=== PATIENT | female | born 1990 | race Caucasian/White ===

== ENCOUNTER → 2018-02-03 12:11 | Outpatient (CLI) | payer MEDICAID, SELFPAY ==
--- NOTE | 2018-02-03 12:17 | US_ITS ---
STUDY: THYROID ULTRASOUND REASON FOR EXAM: Female, 27 years old. Hypothyroidism TECHNIQUE: Ultrasound evaluation of the thyroid was performed with real-time and static hartmann-scale imaging. COMPARISON: None. FINDINGS: RIGHT LOBE: The right lobe of the thyroid gland measures 4.6 x 1.4 x 1.3 cm. There is a heterogeneous echotexture. There are no demonstrated solid, cystic or complex lesions. LEFT LOBE: The left lobe of the thyroid gland measures 4.1 x 1.2 x 1.3 cm. There is a heterogeneous echotexture. There are no demonstrated solid, cystic or complex lesions. ISTHMUS: The isthmus measures 3 mm. The regional lymph nodes are normal. US/Thyroid IMPRESSION: Heterogeneous thyroid without nodules Electronically Signed: Jose Bedoya DO at 14:04 EDT Tel , Service support ,
== END ==
DX: E03.9 Hypothyroidism, unspecified (principal)
CPT/HCPCS: 76536

== ENCOUNTER → 2018-06-24 09:12 | Outpatient (CLI) | payer MEDICAID, SELFPAY ==
--- NOTE | 2018-06-24 09:15 | RAD_ITS ---
STUDY: SWALLOWING STUDY REASON FOR EXAM: Female, 27 years old. Dysphagia TECHNIQUE: The examination was performed with Speech Pathology in attendance. Under fluoroscopic observation, the patient ingested thin barium, thick barium, barium pudding, and barium coated cracker. FLUOROSCOPY TIME: 1:06 minutes/seconds RADIOLOGIST INVOLVEMENT: Radiologist was present and providing direct supervision. COMPARISON: None. FINDINGS: The following was observed during swallowing of the various mixtures of barium: Thin Barium: There was no evidence of aspiration or laryngeal penetration. Thick Barium: There was no evidence of aspiration or laryngeal penetration. Barium Pudding: There was no evidence of aspiration or laryngeal penetration. Barium Coated Cracker: There was no evidence of aspiration or laryngeal penetration. RAD/Swallowing Function w/Video IMPRESSION: Normal tailored barium swallow study. No evidence of increased risk for aspiration. The swallow study findings were discussed with the patient by the speech pathologist at the conclusion of the examination. Please see speech pathology report for more information and recommendations. The procedure was performed by speech therapist under the direct supervision of myself Electronically Signed: Michelle King, at 12:34 EDT Tel , Service support ,
--- NOTE | 2018-06-24 10:07 | SP.MBSS_ITS ---
PRIMARY / SECONDARY DIAGNOSIS: dysphagia, unspecified (R13.10) REFERRING PHYSICIAN: Cinthya Cedeno/Batsheva Watson CURRENT DIET: Regular textures/thin liquids DENTITION: Natural Teeth MENTAL STATUS: WFL RESPIRATORY STATUS: O2 via room air PREVIOUS MODIFIED BARIUM SWALLOW STUDY: N/A REASON FOR REFERRAL: throat clearing/coughing when swallowing MEDICAL HISTORY: Graves/ Disease, hypothyroidism STUDY FINDINGS: Patient participated in a Modified Barium Swallow (MBS) study on 06/24/2016. Dr. King was the radiologist present for this evaluation. This study was recorded in the lateral view and images were sent to PACs for storage. The following consistencies were presented to this patient for analysis of oropharyngeal swallow function: thin liquid, pudding, and a regular textured, Mami Doone cookie. Results of the MBS are as follows: PENETRATION / ASPIRATION SCALE (HAY): 1 = does not enter airway 2 = enters airway/above vocal folds/ejected 3 = enters airway/above vocal folds/not ejected 4 = enters airway/contacts vocal folds/ejected 5 = enters airway/contacts vocal folds/not ejected 6 = enters airway/below vocal folds/ejected 7 = enters airway/below vocal folds/not ejected despite effort 8 = enters airway/below vocal folds/no effort PENETRATION / ASPIRATION SCALE (SCORE): 1) thin liquid via teaspoon = 1 2) thin liquid via teaspoon = 1 3) thin liquid via single small sip from cup= 1 4) thin liquid via single large sip from cup= 1 5) thin liquid via sequential sips from cup = 1 6) thin liquid via sequential sips via straw = 1 7) pudding = 1 8) cookie = 1 9) cookie = 1 IMPRESSION: Swallow function within normal limits. ORAL PHASE CHARACTERIZED BY: LABIAL SEAL: no labial escape TONGUE CONTROL DURING BOLUS MANIPULATION: cohesive bolus between tongue to palatal seal BOLUS PREPARATION / MASTICATION: timely and efficient chewing and mashing BOLUS TRANSPORT / LINGUAL MOTION: brisk tongue motion ORAL RESIDUE: trace residue lining oral structures PHARYNGEAL PHASE CHARACTERIZED BY: INITIATION OF PHARYNGEAL SWALLOW: bolus head at posterior angle of ramus at first hyoid excursion SOFT PALATE ELEVATION: no bolus between soft palate and pharyngeal wall LARYNGEAL ELEVATION: complete superior movement of thyroid cartilage with complete approximation of arytenoids cartilage to epiglottic petiole ANTERIOR HYOID EXCURSION: complete anterior movement EPIGLOTTIC MOVEMENT: complete epiglottic inversion LARYNGEAL VESTIBULE CLOSURE AT HEIGHT OF SWALLOW: complete laryngeal vestibule closure with no air/contrast in laryngeal vestibule PHARYNGEAL STRIPPING WAVE: pharyngeal stripping wave present / complete PHARYNGOESOPHAGEAL SEGMENT OPENING: complete distension and complete duration with no obstruction of flow TONGUE BASE RETRACTION: trace column of contrast between tongue base and posterior pharyngeal wall PHARYNGEAL RESIDUE: complete pharyngeal clearance ESOPHAGEAL PHASE CHARACTERIZED BY: ESOPHAGEAL BOLUS CLEARANCE IN THE UPRIGHT POSITION: complete clearance from portion that could be visualized. DIET TEXTURE RECOMMENDATIONS: Will recommend a regular textured, thin liquid diet. COMPENSATORY STRATEGIES RECOMMENDED: Will recommend reduced bolus volume, alternate bites/sips, sit upright 90 degrees during PO intake. INTERPRETATION OF RESULTS: Patient presents with swallow function that is within normal limits at this time. Symptoms patient is describing (throat clearing) may be likely due to post nasal drip and/or acid reflux causing sensation requiring throat clear/cough. Oral phase of the patients swallow primarily marked by brisk lingual motion and adequate mastication with regular textures. Timely swallow appreciated. Pharyngeal phase primarily marked by adequate laryngeal elevation and hyoid excursion with effective epiglottic closure. No aspiration noted this date with thin liquids, pudding, or cookie/regular textures. RECOMMENDATIONS: The patient and family verbalize understanding and agreement with results and were provided a brief overview of signs and symptoms of aspiration, with recommendations for the patient to further discuss symptoms with PCP. No further skilled speech-language services warranted at this time targeting dysphagia. IMAGE COUNT: [id number] Soledad Rivas M.A., [facility] Speech Language Pathologist [address] [address] [phone]
== END ==
PROVIDERS: Referring Provider Nurse Practitioner Family
DX: R13.10 Dysphagia, unspecified (principal)
CPT/HCPCS: 74230; 92611

== ENCOUNTER → 2020-06-02 09:20 | Outpatient (CLI) | payer MEDICAID, SELFPAY ==
[2020-06-02 10:23] LABS: T4 Free Direct 1.27 ng/dL (0.76-1.46); Thyroid Stim Hormone (TSH) 0.35 uIU/mL (0.358-3.74)
== END ==
DX: Z79.899 Other long term (current) drug therapy (principal)
CPT/HCPCS: 36415; 84439; 84443

== ENCOUNTER → 2020-07-16 09:28 | Outpatient (CLI) | payer MEDICAID, SELFPAY ==
[2020-07-16 11:19] LABS: Thyroid Stim Hormone (TSH) 2.11 uIU/mL (0.358-3.74)
== END ==
PROVIDERS: Visit Provider Nurse Practitioner Adult Health
DX: E03.9 Hypothyroidism, unspecified (principal)
CPT/HCPCS: 36415; 84443

== ENCOUNTER → 2020-10-29 08:48 | Outpatient (CLI) | payer OTHER, MEDICAID, SELFPAY ==
[2020-10-29 09:14] LABS: Absolute Lymphocyte Count 3.84 X10^3/uL (0.83-4.51); Absolute Neutrophil Count 7.2 X10^3/uL (2.0-7.7); Basophil% 0.8 % (0-1); Eosinophil# 0.57 X10^3/uL; Eosinophils% 4.4 % (0-5); Hematocrit 42.2 % (37-47); Lymphocyte # 3.84 X10^3/ul (0.83-4.51); Lymphocyte % 29.9 % (19-41); Mean Corp Hgb Conc 33.2 g/dL (32-36); Mean Corpuscular Hgb 31.1 pg (27.0-32.0); Mean Corpuscular Volume 93.8 fL (81-99); Mean Platelet Vol. 10.5 fl (6.2-12.0); Monocyte# 1.09 X10^3/uL; Monocyte% 8.5 % (0-10); NRBC Flagged by Analyzer 0 % (0-5); Neutrophil # 7.21 X10^3/uL (2.7-7.7); Platelet Count 232 K/mm3 (150-450); RBC Distribution Width CV 12.8 % (11.6-14.6); White Blood Count 12.9 K/mm3 (4.4-11.0)
[2020-10-29 09:40] LABS: AST(SGOT) 22 U/L (15-37); Alanine Aminotransfer ALT/SGPT 25 U/L (13-56); Albumin, Serum 3.8 g/dL (3.2-5.0); Alkaline Phosphatase 61 U/L (45-117); Anion Gap 6 (5-15); BUN 12 mg/dL (7-18); BUN/Creat Ratio 17.4 RATIO (10-20); Calcium,Total 8.9 mg/dL (8.5-10.1); Chloride 105 mmol/L (98-107); Cholesterol 180 mg/dL (200); Creatinine, Serum 0.69 mg/dL (0.55-1.02); EST Glomerular Filtration Rate 108 mL/min (>60); Est Glom Filt Rate - Afr Amer 131 mL/min (>60); Globulin 3.7 g/dL (2.2-4.2); Glucose 80 mg/dL (74-106); High Density Lipoprotein 50 mg/dL; Potassium 3.7 mmol/L (3.5-5.1); Protein, Total 7.5 g/dL (6.4-8.2); Sodium Level 139 mmol/L (136-145); Triglycerides 119 mg/dL; Very Low Density Lipoprotein 24 mg/dL (5-40)
[2020-10-31 14:41] LABS: Vitamin D 1,25-Dihydroxy 58.2 pg/mL (19.9-79.3)
== END ==
PROVIDERS: PCP Nurse Practitioner Adult Health; Referring Provider Nurse Practitioner Adult Health; Visit Provider Nurse Practitioner Adult Health
DX: E03.9 Hypothyroidism, unspecified (principal); E55.9 Vitamin D deficiency, unspecified
CPT/HCPCS: 36415; 80053; 80061; 82652; 85025

== ENCOUNTER 2021-01-22 08:41 | Emergency (ER) | payer OTHER, MEDICAID, SELFPAY ==
[2021-01-22 08:42] VITALS: BP 145/96; PULSE 94; RESP 18; TEMP 35.5; O2SAT 97; BMI 41.3
--- NOTE | 2021-01-22 08:47 | NURSING ---
NO OLD EKGS
--- NOTE | 2021-01-22 09:03 | RAD_ITS ---
EXAM: XR CHEST, 1 VIEW : 1990 CLINICAL INDICATION: chest pain TECHNIQUE: Frontal view of the chest. This report was created using [employer] report generation technology. COMPARISON: None. FINDINGS: LUNGS AND PLEURAL SPACES: Unremarkable. No consolidation or edema. No pneumothorax. No effusion. HEART: Unremarkable. Cardiac silhouette not enlarged. MEDIASTINUM: Central airways and mediastinal contour are unremarkable. BONES/JOINTS: Unremarkable. SOFT TISSUES: Unremarkable. RAD/Chest 1 View (Portable) IMPRESSION: No radiographic evidence of acute cardiopulmonary disease. at 1821 Reported and signed by: Clarence Cobos MD Electronically Signed: Clarence Cobos MD at 18:20 EDT Tel , Service support ,
--- NOTE | 2021-01-22 09:03 | EKG12_ITS ---
Test Reason : Blood Pressure : / mmHG Vent. Rate : 096 BPM Atrial Rate : 096 BPM P-R Int : 182 ms QRS Dur : 086 ms QT Int : 380 ms P-R-T Axes : 054 071 036 degrees QTc Int : 480 ms Normal sinus rhythm Normal ECG Confirmed by LEO BRYAN MD ([id number]), editor newspaper MAX SAMS ([id number]) on 01/23/2021 9:24:44 AM Referred By: EDITH Confirmed By:LEO BRYAN MD
[2021-01-22] MEDS: Aspirin 81 MG TAB.CHEW 324 MG PO (09:28)
[2021-01-22 09:37] LABS: Absolute Lymphocyte Count 3.26 X10^3/uL (0.83-4.51); Absolute Neutrophil Count 5.4 X10^3/uL (2.0-7.7); Basophil# 0.13 X10^3/uL; Basophil% 1.3 % (0-1); Eosinophil# 0.41 X10^3/uL; Hematocrit 42.4 % (37-47); Hemoglobin 14.5 g/dL (12.0-15.0); Lymphocyte # 3.26 X10^3/ul (0.83-4.51); Lymphocyte % 32.1 % (19-41); Mean Corp Hgb Conc 34.2 g/dL (32-36); Mean Corpuscular Hgb 32.4 pg (27.0-32.0); Mean Corpuscular Volume 94.6 fL (81-99); Mean Platelet Vol. 10.4 fl (6.2-12.0); Monocyte# 0.96 X10^3/uL; Monocyte% 9.4 % (0-10); NRBC Flagged by Analyzer 0 % (0-5); Neutrophil # 5.38 X10^3/uL (2.7-7.7); Neutrophil % 52.9 % (47-70); Platelet Count 253 K/mm3 (150-450); RBC Distribution Width CV 12.7 % (11.6-14.6); RBC Distribution Width SD 43.8 fl (35.1-43.9); Red Blood Count 4.48 M/mm3 (4.2-5.4); White Blood Count 10.2 K/mm3 (4.4-11.0)
[2021-01-22 09:49] LABS: D-Dimer Quantitative (DVT/PE) 0.59 FEU/ug/m (0.27-0.49)
[2021-01-22 10:02] LABS: Anion Gap 7 (5-15); BUN 12 mg/dL (7-18); BUN/Creat Ratio 14.6 RATIO (10-20); Calcium,Total 9.3 mg/dL (8.5-10.1); Chloride 103 mmol/L (98-107); Creatinine, Serum 0.82 mg/dL (0.55-1.02); EST Glomerular Filtration Rate 88 mL/min (>60); Est Glom Filt Rate - Afr Amer 106 mL/min (>60); Estimated Creatinine Clearance 106.75 ml/min; Glucose 94 mg/dL (74-106); Potassium 4.1 mmol/L (3.5-5.1); Sodium Level 140 mmol/L (136-145); Troponin-I HS 5 pg/mL (3.0-54.0)
--- NOTE | 2021-01-22 10:20 | CT_ITS ---
STUDY: CTA CHEST REASON FOR EXAM: Female, 30 years old. Possible pulmonary embolism. RADIATION DOSAGE (If Supplied By Facility): CTDIvol = ( 11.48 ) mGy, DLP = ( 525.90 ) mGycm TECHNIQUE: The examination was performed with the intravenous administration of IV 100mL Isovue-370. Post-processing of the angiographic images was performed, with multiplanar reformation and 3D reconstruction. Individualized dose optimization techniques were used for this CT. COMPARISON: Comparison is made with prior chest radiograph done earlier today. FINDINGS: Normal enhancement of the main pulmonary artery and right and left pulmonary arteries. Normal enhancement of the bilateral peripheral pulmonary arteries. There is no demonstrated pulmonary embolism. Normal thoracic aorta and visualized great vessels. There is no demonstrated aortic dissection. Normal heart and pericardium. Normal mediastinum. Normal hilar regions. Normal visualized trachea and bronchi. The lungs are well expanded. Small bilateral pleural effusions with bibasilar atelectasis. Normal pleura. Normal chest wall structures. Normal osseous structures. Normal visualized upper abdomen. CT/CTA Chest W/WO Contrast IMPRESSION: No evidence of pneumothorax. Small bilateral pleural effusions with bibasilar atelectasis. Electronically Signed: Marbin Murray MD at 11:02 EDT , Service support ,
[2021-01-22 11:10] VITALS: PULSE 88; RESP 16; O2SAT 96
--- NOTE | 2021-01-22 11:29 | EDS_ITS ---
HPI History of Present Illness Chief Complaint: Chest Pain Narrative Narrative: Patient presents with chest pain for about 8 hours prior to arrival, it was a brief episode that lasted about half hour and it is now gone. She has no fever chills cough or congestion. This started at work after she was bending over. [facility] Medical History (Updated 01/22/21 @ 11:[address] Geo Wilson MD) Hyperthyroidism Allergy/AdvReac Type Severity Reaction Status Date / Time No Known Allergies Allergy Verified 01/22/21 08:42 Social History Smoking Status: Never smoker ROS ROS ED ROS Narrative Past medical history: Reviewed, unremarkable Medications: Reviewed Social history: Noncontributory Review of systems: All systems negative except as indicated General: No fever Eyes: No visual changes ENT: No upper airway congestion, normal voice Neck: No neck pain Cardiovascular: Chest pain as in HPI Respiratory: No shortness of breath or cough Gastrointestinal: No abdominal pain, nausea vomiting or diarrhea Genitourinary: No dysuria Musculoskeletal: Denies myalgias no difficulty with ambulation Skin: No rash Neurological: No memory loss, confusion or any focal weakness Psych: No recent behavioral changes Hematologic: No easy bleeding or easy bruising EXAM Physical Exam Narrative Exam Narrative: Physical exam General: Well nourished, Well developed, No Acute Distress Head: Normocephalic, Atraumatic Eyes: Conjunctiva not pale ENT: Moist mucous membranes Neck: Supple, Nontender, No lymphadenopathy Cardiovascular: Regular rate, Regular rhythm Respiratory: No distress, CTA bilaterally Abdomen: Soft, Nontender, Nondistended Back: Nontender, Normal Inspection. Negative for: CVA tenderness Extremities: Nontender, No edema Skin: Normal color, No rash Neurological: Alert, Normal Strength, Normal Sensation Psychological: Normal affect Const Vital Signs: 01/22/21 08:42 01/22/21 09:35 01/22/21 11:10 Temperature 96 F L Temperature Source Temporal Pulse Rate 94 88 Respiratory Rate 18 16 Blood Pressure 145/96 H Blood Pressure Mean 112 Pulse Ox 97 96 Oxygen Delivery Method Room Air Room Air Room Air Heart Score History: Slightly/Non-Suspicious ECG: Normal Age: </= 45 years Risk Factors: 1 or 2 Risk Factors Troponin: </= Normal Limit Score: 1 MDM MDM MDM Narrative Medical decision making narrative: Patient has a normal work-up, D-dimer slightly elevated but the CT is negative I will discharge in stable condition with reassurance. She is now asymptomatic. Lab Data Labs: Laboratory Results - last 24 hr 01/22/21 01/22/21 01/22/21 09:27 09:27 09:27 WBC 10.2 RBC 4.48 Hgb 14.5 Hct 42.4 MCV 94.6 MCH 32.4 H MCHC 34.2 RDW Std Deviation 43.8 RDW Coeff of Shanna 12.7 Plt Count 253 MPV 10.4 Immature Gran % (Auto) 0.300 Neut % (Auto) 52.9 Lymph % (Auto) 32.1 Wilbarger % (Auto) 9.4 Eos % (Auto) 4.0 Baso % (Auto) 1.3 H Absolute Neuts (auto) 5.4 Absolute Lymphs (auto) 3.26 Nucleated RBC % 0 D-Dimer Quant (PE/DVT) 0.59 H* Sodium 140 Potassium 4.1 Chloride 103 Carbon Dioxide 30.0 Anion Gap 7 BUN 12 Creatinine 0.82 Estim Creat Clear Calc 106.75 Est GFR (MDRD) Af Amer 106 Est GFR (MDRD) Non-Af 88 BUN/Creatinine Ratio 14.6 Glucose 94 Calcium 9.3 Troponin I High Sens 5 Radiography Diagnostic Testing: Clinical Impression(s) from Imaging Studies Chest CTA 01/22/21 10:20 IMPRESSION: No evidence of pneumothorax. Small bilateral pleural effusions with bibasilar atelectasis. Electronically Signed: Marbin Murray MD at 11:02 EDT , Service support , Discharge Plan Triage Chief Complaint: Chest Pain ED Provider: Geo Wilson Dx/Rx/DC Orders Clinical Impression: Chest pain Instructions: ED Chest Pain, Uncertain Cause Primary Care Provider: Zoraida Horton Referrals: Zoraida Horton, [employer] [Primary Care Provider] - 2 Days Disposition Disposition: Home, Self Care
[2021-01-22 12:17] VITALS: BP 130/68; PULSE 61; RESP 18; O2SAT 98
== END 2021-01-22 12:18 | disposition home or self-care (01) ==
PROVIDERS: Emergency Provider Emergency Medicine; PCP Nurse Practitioner Adult Health
DX: R07.9 Chest pain, unspecified (principal)
CPT/HCPCS: 71045; 71275; 80048; 84484; 85025; 85379; 87426; 93005; 99285; Q9967; A4216

== ENCOUNTER → 2021-01-30 08:24 | Outpatient (CLI) | payer OTHER, MEDICAID, SELFPAY ==
[2021-01-30 10:55] LABS: Absolute Lymphocyte Count 2.71 X10^3/uL (0.83-4.51); Absolute Neutrophil Count 5.1 X10^3/uL (2.0-7.7); Basophil# 0.11 X10^3/uL; Basophil% 1.2 % (0-1); Eosinophil# 0.41 X10^3/uL; Eosinophils% 4.5 % (0-5); Hematocrit 41.8 % (37-47); Hemoglobin 13.9 g/dL (12.0-15.0); Lymphocyte # 2.71 X10^3/ul (0.83-4.51); Lymphocyte % 29.7 % (19-41); Mean Corp Hgb Conc 33.3 g/dL (32-36); Mean Corpuscular Volume 96.1 fL (81-99); Mean Platelet Vol. 11.1 fl (6.2-12.0); Monocyte# 0.74 X10^3/uL; Monocyte% 8.1 % (0-10); NRBC Flagged by Analyzer 0 % (0-5); Neutrophil # 5.09 X10^3/uL (2.7-7.7); Platelet Count 219 K/mm3 (150-450); RBC Distribution Width CV 12.6 % (11.6-14.6); RBC Distribution Width SD 44.3 fl (35.1-43.9); Red Blood Count 4.35 M/mm3 (4.2-5.4); White Blood Count 9.1 K/mm3 (4.4-11.0)
[2021-01-30 11:29] LABS: Vitamin B12 705 pg/mL (211-911)
[2021-01-30 11:37] LABS: ALB/GLOB Ratio 0.9 RATIO (0.9-2.4); AST(SGOT) 21 U/L (15-37); Alanine Aminotransfer ALT/SGPT 22 U/L (13-56); Albumin, Serum 3.4 g/dL (3.2-5.0); Alkaline Phosphatase 65 U/L (45-117); Anion Gap 5 (5-15); BUN 12 mg/dL (7-18); BUN/Creat Ratio 14.5 RATIO (10-20); Chloride 105 mmol/L (98-107); Cholesterol 180 mg/dL (200); Creatinine, Serum 0.83 mg/dL (0.55-1.02); EST Glomerular Filtration Rate 87 mL/min (>60); Est Glom Filt Rate - Afr Amer 105 mL/min (>60); Globulin 3.9 g/dL (2.2-4.2); Glucose 79 mg/dL (74-106); High Density Lipoprotein 52 mg/dL; Iron 84 ug/dL (50-170); Iron Binding Capacity,Total 357 ug/dL (250-450); PERCENT IRON SATURATION 23.5 % (15.0-55.0); Protein, Total 7.3 g/dL (6.4-8.2); Sodium Level 138 mmol/L (136-145); Triglycerides 115 mg/dL; Very Low Density Lipoprotein 23 mg/dL (5-40)
[2021-02-01 13:09] LABS: Vitamin D 1,25-Dihydroxy 28.5 pg/mL (19.9-79.3)
== END ==
PROVIDERS: Referring Provider Nurse Practitioner Adult Health; Visit Provider Nurse Practitioner Adult Health
DX: E03.9 Hypothyroidism, unspecified (principal); E55.9 Vitamin D deficiency, unspecified; R63.5 Abnormal weight gain; R06.02 Shortness of breath; R53.82 Chronic fatigue, unspecified; R20.2 Paresthesia of skin
CPT/HCPCS: 36415; 80053; 80061; 82607; 82652; 83540; 83550; 84443; 85025

== ENCOUNTER → 2021-03-05 15:26 | Outpatient (CLI) | payer MEDICAID, SELFPAY ==
--- NOTE | 2021-03-05 15:29 | US_ITS ---
STUDY: THYROID ULTRASOUND REASON FOR EXAM: Female, 30 years old. HYPOTHYROIDISM TECHNIQUE: Ultrasound evaluation of the thyroid was performed with real-time and static hartmann-scale imaging. COMPARISON: Comparison is made with prior study dated 02/03/2018. FINDINGS: RIGHT LOBE: The right lobe of the thyroid gland is small and measures 2.1 cm x 0.7 cm x 0.7 cm. There is a heterogeneous echotexture. There are no demonstrated solid, cystic or complex lesions. LEFT LOBE: The left lobe of the thyroid gland is small and measures 2.4 cm x 0.9 cm x 0.7 cm. There is a heterogeneous echotexture. There are no demonstrated solid, cystic or complex lesions. ISTHMUS: The isthmus measures 2 mm. The regional lymph nodes are normal. US/Thyroid IMPRESSION: Hypoplastic thyroid. Heterogeneous echotexture. Electronically Signed: Marbin Murray MD at 15:26 EST , Service support ,
== END ==
PROVIDERS: Referring Provider Nurse Practitioner Adult Health; Visit Provider Nurse Practitioner Adult Health
DX: E03.9 Hypothyroidism, unspecified (principal)
CPT/HCPCS: 76536

== ENCOUNTER 2021-04-17 12:05 | Outpatient (CLI) | payer MEDICAID, SELFPAY ==
[2021-04-17 13:10] LABS: Thyroid Stim Hormone (TSH) 0.45 uIU/mL (0.358-3.74)
== END 2021-04-17 23:59 | disposition short-term general hospital (02) ==
DX: E03.9 Hypothyroidism, unspecified (principal)
CPT/HCPCS: 36415; 84443

== ENCOUNTER → 2021-10-03 | Outpatient (CLI) | payer MEDICAID, SELFPAY ==
[2021-10-03 17:19] LABS: Absolute Lymphocyte Count 3.39 X10^3/uL (0.83-4.51); Absolute Neutrophil Count 8.3 X10^3/uL (2.0-7.7); Basophil# 0.12 X10^3/uL; Basophil% 0.9 % (0-1); Eosinophil# 0.44 X10^3/uL; Eosinophils% 3.2 % (0-5); Hematocrit 41.1 % (37-47); Hemoglobin 13.8 g/dL (12.0-15.0); Lymphocyte # 3.39 X10^3/ul (0.83-4.51); Lymphocyte % 24.8 % (19-41); Mean Corp Hgb Conc 33.6 g/dL (32-36); Mean Corpuscular Hgb 30.1 pg (27.0-32.0); Mean Corpuscular Volume 89.7 fL (81-99); Mean Platelet Vol. 10.5 fl (6.2-12.0); Monocyte# 1.35 X10^3/uL; Monocyte% 9.9 % (0-10); NRBC Flagged by Analyzer 0 % (0-5); Neutrophil # 8.31 X10^3/uL (2.7-7.7); Neutrophil % 60.8 % (47-70); Platelet Count 271 K/mm3 (150-450); RBC Distribution Width SD 42.3 fl (35.1-43.9); Red Blood Count 4.58 M/mm3 (4.2-5.4); White Blood Count 13.7 K/mm3 (4.4-11.0)
[2021-10-03 17:35] LABS: Vitamin B12 922 pg/mL (211-911)
[2021-10-03 17:51] LABS: Erythrocyte Sedimentation Rate 25 mm/hr (0-30)
[2021-10-03 18:09] LABS: Color, Urine Yellow (Yellow); Glucose, Dipstick Normal (Normal); Ketone-Dipstick 5 mg/dl (Negative); Leukocyte Esterase-Dipstick Negative /ul (Negative); Nitrite-Dipstick Negative (Negative); Occult Blood-Urine 10 /ul (Negative); Protein-Dipstick Negative (Negative); Urine Bilirubin Dipstick Negative (Negative); Urine Clarity Clear (Clear); Urine Urobilinogen Normal (Normal)
[2021-10-03 18:28] LABS: Bacteria 1+ /hpf (None Seen); Mucous, Urine 1+ /hpf (<or=2+); Red Blood Cells-Urine 0-5 SEEN /hpf (0-5); Squamous Epithelial Cells - UA 0-5 SEEN /hpf (5-10); White Blood Cells 0-5 SEEN /hpf (0-5)
[2021-10-03 18:56] LABS: AST(SGOT) 35 U/L (15-37); Alanine Aminotransfer ALT/SGPT 54 U/L (13-56); Albumin, Serum 3.8 g/dL (3.2-5.0); Alkaline Phosphatase 82 U/L (45-117); Anion Gap 8 (5-15); BUN 20 mg/dL (7-18); BUN/Creat Ratio 22.4 RATIO (10-20); Calcium,Total 10.2 mg/dL (8.5-10.1); Chloride 106 mmol/L (98-107); Creatinine, Serum 0.89 mg/dL (0.55-1.02); EST Glomerular Filtration Rate 79 mL/min (>60); Est Glom Filt Rate - Afr Amer 96 mL/min (>60); Glucose 94 mg/dL (74-106); Potassium 3.7 mmol/L (3.5-5.1); Protein, Total 7.8 g/dL (6.4-8.2); Rheumatoid Factor < 10.0 IU/mL (<15); Sodium Level 139 mmol/L (136-145)
[2021-10-05 15:34] LABS: Complement C3 177 mg/dL (82-167)
[2021-10-09 11:16] LABS: ANTINUCLEAR ANTIBODIES DIRECT Negative (Negative); Vitamin D 1,25-Dihydroxy 20.5 pg/mL (24.8-81.5)
== END | disposition home or self-care (01) ==
PROVIDERS: Visit Provider Family Medicine
DX: R53.82 Chronic fatigue, unspecified (principal)
CPT/HCPCS: 82306; 86038; 36415; 80053; 81001; 82607; 82652; 82746; 84443; 85025; 85652; 86160; 86431

== ENCOUNTER → 2021-11-25 | Outpatient (CLI) | payer MEDICAID, SELFPAY | END | disposition home or self-care (01) | LOC: SL 19:57 | PROVIDERS: Visit Provider Internal Medicine Critical Care Medicine | DX: G47.10 Hypersomnia, unspecified (principal); E66.01 Morbid (severe) obesity due to excess calories; R53.82 Chronic fatigue, unspecified; R41.3 Other amnesia; F32.A Depression, unspecified | CPT/HCPCS: 95810 ==

== ENCOUNTER → 2022-02-04 | Outpatient (CLI) | payer MEDICAID, SELFPAY | END | disposition home or self-care (01) | LOC: SL 21:44 | PROVIDERS: Referring Provider Internal Medicine Critical Care Medicine; Visit Provider Internal Medicine Critical Care Medicine | DX: G47.33 Obstructive sleep apnea (adult) (pediatric) (principal) | CPT/HCPCS: 95811 ==

== ENCOUNTER → 2022-05-07 | Outpatient (CLI) | payer MEDICAID, SELFPAY ==
--- NOTE | 2022-05-07 12:55 | US_ITS ---
INDICATION: HYPOTHYROIDISM EXAMINATION: Ultrasound US Thyroid (eg thyroid, parathyroid, parotid) TECHNIQUE: Virk scale and color doppler imaging was performed of the thyroid gland. COMPARISON: March 05, 2021. FINDINGS: RIGHT THYROID LOBE: 4.0 x 0.8 x 1.2 cm. Heterogeneous echotexture with normal vascularity. [No thyroid nodules are present. LEFT THYROID LOBE: 3.5 x 1.5 x 1.1 cm. Heterogeneous echotexture with normal vascularity. [No thyroid nodules are present. ISTHMUS: 2 mm. No thyroid nodules are present. US/Thyroid IMPRESSION: Heterogeneous thyroid lobes without discrete nodule. Slightly larger thyroid lobes since the previous study. Electronically Signed: Lang Cueva DO at 21:40 EST ,
== END | disposition home or self-care (01) ==
LOC: US 12:54
PROVIDERS: Visit Provider Nurse Practitioner Family
DX: E03.9 Hypothyroidism, unspecified (principal)
CPT/HCPCS: 76536

== ENCOUNTER → 2022-05-12 | Outpatient (CLI) | payer MEDICAID, SELFPAY ==
[2022-05-12 09:07] LABS: Hematocrit 40.3 % (37-47); Hemoglobin 12.8 g/dL (12.0-15.0); Mean Corp Hgb Conc 31.8 g/dL (32-36); Mean Corpuscular Hgb 29.6 pg (27.0-32.0); Mean Corpuscular Volume 93.1 fL (81-99); Mean Platelet Vol. 11.1 fl (6.2-12.0); Platelet Count 214 K/mm3 (150-450); RBC Distribution Width CV 13.1 % (11.6-14.6); RBC Distribution Width SD 44.8 fl (35.1-43.9); Red Blood Count 4.33 M/mm3 (4.2-5.4); White Blood Count 10.5 K/mm3 (4.4-11.0)
[2022-05-12 09:45] LABS: ALB/GLOB Ratio 0.9 RATIO (0.9-2.4); AST(SGOT) 19 U/L (15-37); Alanine Aminotransfer ALT/SGPT 27 U/L (13-56); Albumin, Serum 3.2 g/dL (3.2-5.0); Alkaline Phosphatase 87 U/L (45-117); Anion Gap 9 (5-15); BUN 19 mg/dL (7-18); BUN/Creat Ratio 29.4 RATIO (10-20); Calcium,Total 8.9 mg/dL (8.5-10.1); Chloride 107 mmol/L (98-107); Creatinine, Serum 0.65 mg/dL (0.55-1.02); EST Glomerular Filtration Rate 115 mL/min (>60); Est Glom Filt Rate - Afr Amer 139 mL/min (>60); Globulin 3.6 g/dL (2.2-4.2); Glucose 98 mg/dL (74-106); Potassium 3.6 mmol/L (3.5-5.1); Protein, Total 6.8 g/dL (6.4-8.2); Sodium Level 140 mmol/L (136-145); T4 Free Direct 1.43 ng/dL (0.76-1.46); Thyroid Stim Hormone (TSH) 0.19 uIU/mL (0.358-3.74)
[2022-05-14 18:08] LABS: Dilute Prothrombin Time (dPT) 34.2 sec (0.0-47.6); Dilute Russell Viper Venom 34.4 sec (0.0-47.0); Thrombin Time 17.2 sec (0.0-23.0); dPT Confirm Ratio 0.93 Ratio (0.00-1.34)
[2022-05-14 20:20] LABS: Interpretation Comment: (.); PTT-LA 36.6 sec (0.0-43.5)
== END | disposition home or self-care (01) ==
PROVIDERS: Visit Provider Nurse Practitioner Family
DX: E03.9 Hypothyroidism, unspecified (principal); R53.82 Chronic fatigue, unspecified
CPT/HCPCS: 36415; 80053; 84439; 84443; 85027

== ENCOUNTER → 2024-07-05 | Outpatient (CLI) | payer OTHER, SELFPAY ==
--- NOTE | 2024-07-05 15:50 | RAD_ITS ---
PROCEDURE: CHEST PA AND LATERAL 07/05/2024 REASON FOR EXAM: COVID-19 TECHNIQUE: Frontal and lateral views of the chest. PA and lateral COMPARISON: 01/22/2021 FINDINGS: The lungs appear clear. The lungs are well-aerated to mildly hyperinflated. Pulmonary vascularity appears within limits. No pleural effusion. The cardiac and mediastinal contours appear within limits. The visualized osseous structures appear within limits. RAD/Chest PA and Lateral IMPRESSION: No evidence of acute disease. Reading Location: [id number]
== END | disposition home or self-care (01) ==
LOC: RAD 15:45
PROVIDERS: Referring Provider Nurse Practitioner Family; Visit Provider Nurse Practitioner Family
DX: U07.1 COVID-19 (principal)
CPT/HCPCS: 71046